=== PATIENT | female | born 1930 | race Caucasian/White ===

== ENCOUNTER 2018-02-01 13:53 | Emergency (ER) | payer MEDICARE ==
[~2018-02-01] VITALS: Ht 162.6 cm; Wt 45.4 kg
[2018-02-01 14:00] VITALS: Ht 162.6 cm; Wt 45.4 kg
[2018-02-01 16:29] VITALS: BP 139/70
== END 2018-02-01 16:29 | disposition home or self-care (01) ==
LOC: ED 13:53
DX: S82.002A Unspecified fracture of left patella, initial encounter for closed fracture (principal); E78.00 Pure hypercholesterolemia, unspecified; E11.9 Type 2 diabetes mellitus without complications; I10 Essential (primary) hypertension; W01.0XXA Fall on same level from slipping, tripping and stumbling without subsequent striking against object, initial encounter; Y93.89 Activity, other specified; Y92.488 Other paved roadways as the place of occurrence of the external cause; Y99.8 Other external cause status

== ENCOUNTER 2019-05-09 06:46 | Emergency (ER) | payer MEDICARE ==
[~2019-05-09] VITALS: Ht 157.5 cm; Wt 46.3 kg
[2019-05-09 06:54] VITALS: BP 176/50; Ht 157.5 cm; Wt 46.3 kg
== END 2019-05-09 07:45 | disposition home or self-care (01) ==
LOC: ED 06:46
DX: S56.992A Other injury of unspecified muscles, fascia and tendons at forearm level, left arm, initial encounter (principal); L03.114 Cellulitis of left upper limb; I10 Essential (primary) hypertension; E11.9 Type 2 diabetes mellitus without complications; E78.00 Pure hypercholesterolemia, unspecified; Z98.890 Other specified postprocedural states; X58.XXXA Exposure to other specified factors, initial encounter; Y93.89 Activity, other specified; Y92.89 Other specified places as the place of occurrence of the external cause; Y99.8 Other external cause status
CPT/HCPCS: 90715

== ENCOUNTER 2019-07-07 13:50 | Observation (INO) | payer MEDICARE ==
[~2019-07-07] VITALS: Ht 157.5 cm; Wt 49.9 kg
[2019-07-07 14:02] VITALS: Ht 157.5 cm; Wt 49.9 kg
[2019-07-07 14:40] LABS: BASOPHIL % 0.2 % (0-2); PLATELET COUNT 219 x10^3mcL (130-400); RED CELL DISTRIBUTION WIDTH 13.2 % (11.5-14.5)
[2019-07-07 15:02] LABS: CARBON DIOXIDE 24.1 mmol/L (21-32); CHLORIDE SERUM 108 mmol/L (98-107); CREATININE SERUM 1.6 mg/dL (0.6-1.0); GLUCOSE SERUM 186 mg/dL (74-106); POTASSIUM SERUM 4.3 mmol/L (3.5-5.1); SODIUM SERUM 142 mmol/L (136-145)
[2019-07-07 15:06] LABS: ALBUMIN 3.4 g/dL (3.4-5.0); ALKALINE PHOSPHATASE 63 U/L (46-116); ALT/SGPT 32 U/L (14-59); AST/SGOT 27 U/L (15-37); BILIRUBIN TOTAL 1.1 mg/dL (0.20-1.00); TOTAL PROTEIN, SERUM 6.6 g/dL (6.4-8.2)
[2019-07-07 15:10] LABS: microscopic required? NO
[2019-07-07 15:17] LABS: urine erythrocyte NEGATIVE (NEGATIVE)
[2019-07-07 17:39] VITALS: BP 156/76
[2019-07-08 05:12] VITALS: BP 112/55
[2019-07-08 08:04] LABS: CALCIUM 8.6 mg/dL (8.5-10.1); CARBON DIOXIDE 25.7 mmol/L (21-32); CHLORIDE SERUM 109 mmol/L (98-107); CREATININE SERUM 1.4 mg/dL (0.6-1.0); GLUCOSE SERUM 86 mg/dL (74-106); POTASSIUM SERUM 4.3 mmol/L (3.5-5.1); SODIUM SERUM 144 mmol/L (136-145)
[2019-07-08 08:45] VITALS: BP 138/70
[2019-07-08 13:03] VITALS: BP 138/70
[2019-07-08 13:43] VITALS: BP 134/53
== END 2019-07-08 15:21 | disposition home or self-care (01) ==
LOC: ED 13:50 → DU 15:40
PROVIDERS: Emergency Medicine; ADMIT Internal Medicine Pulmonary Disease
DX: K59.00 Constipation, unspecified (principal); I12.9 Hypertensive chronic kidney disease with stage 1 through stage 4 chronic kidney disease, or unspecified chronic kidney disease; N18.3 Chronic kidney disease, stage 3 (moderate); E87.2 Acidosis; E78.5 Hyperlipidemia, unspecified; W18.40XA Slipping, tripping and stumbling without falling, unspecified, initial encounter
CPT/HCPCS: 82962; G0378; J1650; J7030; Q0092